=== PATIENT | male | born 1990 | race Two or more races ===

== ENCOUNTER 2021-01-14 01:03 | Emergency (ER) | payer OTHER ==
[~2021-01-14] VITALS: Ht 167.6 cm; Wt 74.0 kg
[2021-01-14 01:24] VITALS: BP 128/70
== END 2021-01-14 01:24 | disposition home or self-care (01) ==
LOC: ER 01:03
DX: F10.129 Alcohol abuse with intoxication, unspecified (principal); Y90.9 Presence of alcohol in blood, level not specified
CPT/HCPCS: 99283